=== PATIENT | male | born 1970 | race Caucasian/White ===

== ENCOUNTER 2016-11-17 11:08 | Emergency (ER) | payer OTHER ==
--- NOTE | ~2016-11-17 | CT2 ---
[facility] A Service of [facility] RADIOLOGY TEXT RESULTS PATIENT: WENDY FLOYD LOCATION: SED : 70 UNIT #: [id number] AGE: [address]: Jc Cano MD SEX: M ORDER DR: [id number] [place] [id number] E MR#: [id number] Acc #: [id number] NAME: WENDY FLOYD : 1970 SEX: M STUDY DATE/TIME: 11/17/2016 13:15 UNIT: SED ROOM: STUDY DESCRIPTION: CT Abd and Pelv W Cont Attending Physician: Jc Cano M.D. Ordering Physician: Jc Cano M.D. Primary Care Physician: Mindy Veliz M.D. MEDICAL IMAGING REPORT This report is preliminary unless electronic signature is present. EXAM CT abdomen and pelvis with contrast DATE 11/17/2016 HISTORY Abdominal pain with diarrhea and vomiting, headache, chills and generalized weakness since Sunday. Additional history of kidney stones, hypertension, smoking history. Previous appendectomy. COMPARISON CT abdomen and pelvis without contrast 05/16/2015 PROCEDURE 5 mm axial images from the lung bases through the lesser trochanters after intravenous contrast administration. Enteric contrast was not administered. Sagittal and coronal reformatted images were obtained. FINDINGS ABDOMEN FINDINGS: Limited evaluation of bowel due to the lack of enteric contrast. No focal bowel inflammatory changes are identified and there is no evidence of high-grade large or small bowel obstruction. The appendix is surgically absent. Lung bases are clear. Liver, gallbladder, spleen, pancreas, adrenals and kidneys are within normal limits. The tiny nonobstructing bilateral renal calculi documented on the noncontrast CT from 05/16/2015 have no correlate on today's postcontrast exam. PELVIS FINDINGS: Urinary bladder, prostate and rectum are within normal limits. No pelvic adenopathy or free fluid is identified. [facility] A Service of [facility] RADIOLOGY TEXT RESULTS PATIENT: WENDY FLOYD LOCATION: SED : 70 UNIT #: [id number] AGE: [address]: Jc Cano MD SEX: M ORDER DR: No acute osseous abnormalities are identified. IMPRESSION 1. No acute findings in the abdomen or pelvis 2. Appendectomy. Dictated by... Tiffanie Israel M.D. THIS IS AN ELECTRONICALLY VERIFIED REPORT Tiffanie Israel M.D. at 11/22/2016 3:27 PM LEAH/aayush TD: 11/18/2016 06:56 JOB #: [id number] MEDICAL IMAGING REPORT Page 1 of 1
[~2016-11-17 11:08] MED LIST: AMITRYPTYLINE PO; ATARAX PO; AUGMENTIN PO; BUSPAR PO; CAPOZIDE PO; CELEXA PO; LEXAPRO PO; LISINOPRIL PO; LORTAB 7.5-5001 TAB PO; MOBIC15 MG; NEURONTIN600 MG PO
[2016-11-17] MEDS ORDERED: OMEPRAZOLE40 M1 PO (11:26)
[2016-11-17] MEDS ORDERED: CYMBALTA30 MG PO (11:26)
[2016-11-17 12:13] LABS: BASOPHIL% 0.6 % (0-2.5); EOSINOPHIL# 0.2 X10e3 (0-0.7); EOSINOPHIL% 2.6 % (0.0-7.0); HEMATOCRIT 43.9 % (38.0-50.0); HEMOGLOBIN 15.1 gm/dL (13.0-16.0); LYMPHOCYTE# 2.2 X10e3 (1.0-3.5); LYMPHOCYTE% 33.6 % (17.0-45.0); MEAN CELL VOLUME 92.3 FL (83-96); MEAN CORPUSCULAR HEMOGLOBIN 31.7 PG (28-34); MEAN CORPUSCULAR HGB CONC 34.4 g/dL (30-36); MEAN PLATELET VOLUME 8.4 FL (6.5-11.5); MONOCYTE# 0.6 X10e3 (0-1.0); MONOCYTE% 9.3 % (3.0-12.0); NEUTROPHIL# 3.6 X10e3 (1.5-7.1); NEUTROPHIL% 53.9 % (40-75); PLATELET COUNT 110 X10e3 (140-420); RED BLOOD COUNT 4.76 X10e (3.90-5.60); WHITE BLOOD COUNT 6.6 X10e3 (4.0-10.5)
[2016-11-17 12:15] LABS: DIFF IND NO
[2016-11-17 12:18] LABS: URINE SOURCE CLEAN CATCH
[2016-11-17 12:20] LABS: URINE APPEARANCE CLEAR; URINE BILIRUBIN NEG (NEG); URINE BLOOD NEG (NEG); URINE COLOR YELLOW; URINE GLUCOSE NEG (NORM); URINE KETONE NEG (NEG); URINE LEUKOCYTE ESTERASE NEG (NEG); URINE NITRATE NEG (NEG); URINE PH 5.5 (5-8); URINE PROTEIN NEG (NEG); URINE SPECIFIC GRAVITY >=1.030 (1.003-1.035); URINE UROBILINOGEN 0.2 MG/DL (NORM)
[2016-11-17 12:22] LABS: MICRO INDICATED? NO
[2016-11-17 12:32] LABS: BILIRUBIN, DIRECT 0.1 mg/dL (0.0-0.2); BILIRUBIN,INDIRECT 0.7 mg/dL (0.0-0.9); BILIRUBIN,TOTAL 0.8 mg/dL (0.2-2.0); CALCIUM SERUM 8.8 mg/dL (8.4-10.2); GLOM FILT RATE Estimated 89.9 mL/min (>60); POTASSIUM 4.1 mmol/L (3.5-5.1); PROTEIN TOTAL SERUM 6.4 g/dL (6.0-8.3)
== END 2016-11-17 14:25 | disposition home or self-care (01) ==
LOC: SED 11:08
PROVIDERS: Emergency Medicine
DX: R10.9 Unspecified abdominal pain (principal); R11.2 Nausea with vomiting, unspecified; R19.7 Diarrhea, unspecified; F17.210 Nicotine dependence, cigarettes, uncomplicated
CPT/HCPCS: 36415; 74177; 80048; 80076; 81003; 83690; 85025; 96361; 96374; 96375; 99284; C9113; J2405; Q9967